=== PATIENT | male | born 1940 | race Caucasian/White ===

== ENCOUNTER → 2017-05-18 10:00 | Outpatient (REF) | payer MEDICARE, SELFPAY | LOC: LAB 10:00 | PROVIDERS: Visit Provider Emergency Medicine | DX: Z79.899 Other long term (current) drug therapy (principal) ==

== ENCOUNTER → 2017-06-22 11:21 | Outpatient (CLI) | payer MEDICARE, SELFPAY ==
--- NOTE | 2017-06-22 12:34 | XR_ITS ---
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 Normal heart size.. The lungs are clear without infiltrates, suspicious nodules, or pleural effusions. There are chronic changes in the lung bases. No acute bony abnormalities. IMPRESSION: Prior CABG. No acute finding
[2017-06-22 14:05] LABS: Amphetamine/Metha Screen,Urine Negative ng/mL (<1000); Barbiturates Screen,Urine Negative ng/mL (<200); Benzodiazepines Screen,Urine Negative ng/mL (200); Cannabinoid Screen,Urine Negative ng/mL (<50); Cocaine Screen,Urine Negative ng/g (<300); Methadone Screen,Urine Negative ng/mL (<300); Opiate Screen,Urine Negative ng/mL (<300); Phencyclidine Screen,Urine Negative ng/mL (<25)
== END ==
PROVIDERS: PCP Emergency Medicine; Visit Provider Emergency Medicine
DX: Z79.899 Other long term (current) drug therapy (principal); R05 Cough; Z95.5 Presence of coronary angioplasty implant and graft
CPT/HCPCS: 71046; 80305

== ENCOUNTER → 2017-08-31 11:10 | Outpatient (REF) | payer MEDICARE, SELFPAY ==
[2017-08-31 14:53] LABS: Basophils # 0.1 K/mm3 (0-0.2); Basophils % 0.9 % (0.1-2.0); Eosinophils # 0.4 K/mm3 (0.0-0.4); Eosinophils % 5.1 % (0.1-12.0); Hematocrit 50.5 % (42.0-52.0); Hemoglobin 15.7 g/dL (14.1-18.0); Lymphocytes # 1.8 K/mm3 (0.7-4.5); Mean Corpuscular Hemoglobin 30.3 pg (27.0-31.2); Mean Corpuscular Volume 97.7 fl (80-94); Mean Platelet Volume 8.1 fl (7.4-10.4); Monocytes # 0.4 K/mm3 (0.1-1.0); Monocytes % 5.2 % (1.7-9.3); Neutrophils # 4.7 K/mm3 (1.8-7.8); Neutrophils % 63.9 % (37.0-80.0); Platelet Count 213 K/mm3 (142-424); Red Blood Count 5.17 M/mm3 (4.60-6.20); Red Cell Distribution Width 13.8 % (11.5-17.5); White Blood Count 7.3 K/mm3 (4.8-10.8)
[2017-08-31 15:11] LABS: Alanine Aminotransferase 19 U/L (12-78); Albumin Level 3.9 gm/dL (3.4-5.0); Albumin/Globulin Ratio 1.1 (1.1-1.8); Alkaline Phosphatase 100 U/L (46-116); Anion Gap 14.5 mEq/L (5-15); Aspartate Amino Transferase 19 U/L (15-37); Bilirubin,Total 0.4 mg/dL (0.2-1.0); Blood Urea Nitrogen 20 mg/dL (7-18); Calcium 8.8 mg/dL (8.5-10.1); Carbon Dioxide 31 mmol/L (21.0-32.0); Chloride 97 mmol/L (98-107); Chol/HDL Ratio 2.9 (1-3.5); Cholesterol 243 mg/dL (140-200); Creatinine,Serum 1.73 mg/dL (0.70-1.30); Estimated Glomerular Filt Rate 39 ml/min (>60); GFR (African American) 47 ML/MIN (>60); Globulin 3.7 gm/dl (1.3-3.2); Glucose 280 mg/dL (74-106); HDL Cholesterol 84 mg/dL (27-67); LDL Cholesterol 140 mg/dL (0-130); Potassium 5.5 mmoL/L (3.5-5.1); Sodium 137 mmol/L (136-145); Thyroid Stimulating Hormone 0.84 uIU/ml (0.358-3.740); Total Protein,Serum 7.6 gm/dL (6.4-8.2); Triglycerides 96 mg/dL (30-200); VLDL Cholesterol 19 mg/dL (0-40)
[2017-08-31 19:21] LABS: Amphetamine/Metha Screen,Urine Negative ng/mL (<1000); Barbiturates Screen,Urine Negative ng/mL (<200); Benzodiazepines Screen,Urine Negative ng/mL (200); Cannabinoid Screen,Urine Negative ng/mL (<50); Cocaine Screen,Urine Negative ng/g (<300); Methadone Screen,Urine Negative ng/mL (<300); Opiate Screen,Urine Negative ng/mL (<300); Phencyclidine Screen,Urine Negative ng/mL (<25)
[2017-09-02 11:19] LABS: Creatinine, Urine 22.2 mg/dL (Not Estab.); Microalbumin, Urine 113.1 ug/mL (Not Estab.)
[2017-09-03 12:43] LABS: PSA, Free 2.33 ng/mL; Prostate Specific Ag 9.3 ng/mL (0.0-4.0); Vitamin D 25 Hydroxy 14.1 ng/mL (30.0-100.0)
== END ==
LOC: LAB 11:10
PROVIDERS: Visit Provider Emergency Medicine
DX: Z79.899 Other long term (current) drug therapy (principal); M54.9 Dorsalgia, unspecified
CPT/HCPCS: 80053; 80061; 80305; 82043; 82570; 82652; 83036; 84153; 84154; 84439; 84443; 85025

== ENCOUNTER → 2017-10-11 08:44 | Outpatient (REF) | payer MEDICARE, SELFPAY ==
[2017-10-11 16:58] LABS: Amphetamine/Metha Screen,Urine Negative ng/mL (<1000); Barbiturates Screen,Urine Negative ng/mL (<200); Benzodiazepines Screen,Urine Negative ng/mL (200); Cannabinoid Screen,Urine Negative ng/mL (<50); Cocaine Screen,Urine Negative ng/g (<300); Methadone Screen,Urine Negative ng/mL (<300); Opiate Screen,Urine Negative ng/mL (<300); Phencyclidine Screen,Urine Negative ng/mL (<25)
== END ==
LOC: LAB 08:44
PROVIDERS: Visit Provider Emergency Medicine
DX: Z79.899 Other long term (current) drug therapy (principal)
CPT/HCPCS: 80305

== ENCOUNTER → 2017-11-06 10:16 | Outpatient (CLI) | payer MEDICARE, SELFPAY ==
[2017-11-06 10:20] LABS: Microscopic, Urine URINE MICROSCOPIC (MICROSCOPIC)
[2017-11-06 10:37] LABS: Basophils # 0.1 K/mm3 (0-0.2); Basophils % 0.9 % (0.1-2.0); Eosinophils # 0.4 K/mm3 (0.0-0.4); Eosinophils % 5.1 % (0.1-12.0); Hematocrit 47.3 % (42.0-52.0); Hemoglobin 14.5 g/dL (14.1-18.0); Lymphocytes # 1.8 K/mm3 (0.7-4.5); Lymphocytes % 24.6 K/mm3 (10-50); Mean Corpuscular HGB Conc 30.5 g/dL (31.8-35.4); Mean Corpuscular Hemoglobin 28.5 pg (27.0-31.2); Mean Corpuscular Volume 93.5 fl (80-94); Mean Platelet Volume 7.6 fl (7.4-10.4); Monocytes # 0.5 K/mm3 (0.1-1.0); Monocytes % 6.1 % (1.7-9.3); Neutrophils # 4.8 K/mm3 (1.8-7.8); Neutrophils % 63.4 % (37.0-80.0); Platelet Count 204 K/mm3 (142-424); Red Blood Count 5.07 M/mm3 (4.60-6.20); Red Cell Distribution Width 13.5 % (11.5-17.5); White Blood Count 7.5 K/mm3 (4.8-10.8)
[2017-11-06 10:45] LABS: Appearance,Urine CLEAR (Clear); Bilirubin,Urine Negative (Negative); Blood, Urine Negative (Negative); Color,Urine YELLOW (Yellow); Glucose,Urine (UA) TRACE (Negative); Ketones,Urine Negative (Negative); Leukocyte Esterase,Urine Negative (Negative); Nitrate,Urine Negative (Negative); Protein,Urine 1+ (Negative); Specific Gravity, Urine 1.025 (1.005-1.030)
[2017-11-06 10:48] LABS: Creatinine,Urine Random 132 mg/dL (20-320); Total Protein,Urine Random 80.5 mg/dL (0.0-11.9)
[2017-11-06 10:57] LABS: Bacteria,Urine 1+ /lpf; WBC,Urine Occasional #/hpf (0-3)
[2017-11-06 12:50] LABS: Albumin Level 3.3 gm/dL (3.4-5.0); Anion Gap 11.3 mEq/L (5-15); Blood Urea Nitrogen 19 mg/dL (7-18); Calcium 8.4 mg/dL (8.5-10.1); Carbon Dioxide 29 mmol/L (21.0-32.0); Chloride 102 mmol/L (98-107); Creatinine,Serum 1.73 mg/dL (0.70-1.30); Estimated Glomerular Filt Rate 39 ml/min (>60); GFR (African American) 47 ML/MIN (>60); Glucose 215 mg/dL (74-106); Phosphorous 3.9 mg/dL (2.4-4.9); Potassium 5.3 mmoL/L (3.5-5.1); Sodium 137 mmol/L (136-145)
== END ==
PROVIDERS: Visit Provider Internal Medicine Nephrology
DX: N18.3 Chronic kidney disease, stage 3 (moderate) (principal)
CPT/HCPCS: 36415; 80069; 81001; 82570; 84155; 85025

== ENCOUNTER → 2017-11-08 12:23 | Outpatient (POV) | payer MEDICARE, SELFPAY | PROVIDERS: Family Provider Emergency Medicine; PCP Emergency Medicine; Visit Provider Internal Medicine Nephrology | DX: Z00.00 Encounter for general adult medical examination without abnormal findings (principal) ==

== ENCOUNTER → 2017-11-09 11:03 | Outpatient (REF) | payer MEDICARE, SELFPAY ==
[2017-11-09 14:25] LABS: Amphetamine/Metha Screen,Urine Negative ng/mL (<1000); Barbiturates Screen,Urine Negative ng/mL (<200); Benzodiazepines Screen,Urine Negative ng/mL (<200); Cannabinoid Screen,Urine Negative ng/mL (<50); Cocaine Screen,Urine Negative ng/mL (<300); Methadone Screen,Urine Negative ng/mL (<300); Opiate Screen,Urine Negative ng/mL (<300); Phencyclidine Screen,Urine Negative ng/mL (<25)
== END ==
LOC: LAB 11:03
PROVIDERS: Visit Provider Emergency Medicine
DX: M54.5 Low back pain (principal); Z79.899 Other long term (current) drug therapy
CPT/HCPCS: 80305

== ENCOUNTER → 2017-12-27 15:51 | Outpatient (CLI) | payer MEDICARE, SELFPAY ==
[2017-12-27 18:21] LABS: Amphetamine/Metha Screen,Urine Negative ng/mL (<1000); Barbiturates Screen,Urine Negative ng/mL (<200); Benzodiazepines Screen,Urine Negative ng/mL (<200); Cannabinoid Screen,Urine Negative ng/mL (<50); Cocaine Screen,Urine Negative ng/mL (<300); Methadone Screen,Urine Negative ng/mL (<300); Opiate Screen,Urine Negative ng/mL (<300); Phencyclidine Screen,Urine Negative ng/mL (<25)
== END ==
PROVIDERS: Visit Provider Nurse Practitioner Family
DX: Z79.899 Other long term (current) drug therapy (principal)
CPT/HCPCS: 80305

== ENCOUNTER → 2018-01-26 10:57 | Outpatient (REF) | payer MEDICARE, SELFPAY ==
[2018-01-26 14:26] LABS: Amphetamine/Metha Screen,Urine Negative ng/mL (<1000); Barbiturates Screen,Urine Negative ng/mL (<200); Benzodiazepines Screen,Urine Negative ng/mL (<200); Cannabinoid Screen,Urine Negative ng/mL (<50); Cocaine Screen,Urine Negative ng/mL (<300); Methadone Screen,Urine Negative ng/mL (<300); Opiate Screen,Urine Negative ng/mL (<300); Phencyclidine Screen,Urine Negative ng/mL (<25)
== END ==
LOC: LAB 10:57
PROVIDERS: Visit Provider Emergency Medicine
DX: Z79.899 Other long term (current) drug therapy (principal)
CPT/HCPCS: 80305

== ENCOUNTER → 2018-02-04 07:42 | Outpatient (CLI) | payer MEDICARE, SELFPAY ==
--- NOTE | 2018-02-04 07:44 | CI_ITS ---
Cerebrovascular Exam Indications: 433.10 Occlusion/stenosis of carotid artery without cerebral infarction. IMPRESSIONS 1. The bilateral vertebral arteries are patent with normal antegrade flow. 2. Study suggests 50-69% stenosis involving the right internal carotid artery and the left internal carotid artery. The left ICA was difficult to image velocities support 50-69% but upper end of scale.No change from the study of 24-Jun-2016. Carotid duplex study. Complete study and Doppler flow study including spectral analysis, color and whitten scale imaging. Location: Vascular laboratory. Patient status: Outpatient. Tables: Arterial flow: + +--------+--------+ Location V sys V ed + +--------+--------+ Right CCA - proximal 45.6cm/s 12.6cm/s + +--------+--------+ Right CCA - distal 49.5cm/s 11cm/s + +--------+--------+ Right ECA 112cm/s -------- + +--------+--------+ Right ICA - proximal 117cm/s 43.2cm/s + +--------+--------+ Right ICA - mid 141cm/s 43.2cm/s + +--------+--------+ Right ICA - distal 65.2cm/s 21.2cm/s + +--------+--------+ Right vertebral 75.4cm/s -------- + +--------+--------+ Left CCA - proximal 107cm/s 23.6cm/s + +--------+--------+ Left CCA - distal 135cm/s 28.3cm/s + +--------+--------+ Left ECA 188cm/s -------- + +--------+--------+ Left ICA - proximal 141cm/s 44cm/s + +--------+--------+ Left ICA - mid 120cm/s 33cm/s + +--------+--------+ Left ICA - distal 108cm/s 25.1cm/s + +--------+--------+ Left vertebral 72.3cm/s -------- + +--------+--------+ Velocity ratios: + + + + + + Right, V sys Right, V ed Left, V sys Left, V ed + + + + + + Max ICA/dist CCA 2.85 3.93 1.04 1.55 + + + + + + (Report amended ) Electronically signed by: Juan Broderick [id number]
== END ==
PROVIDERS: Family Provider Emergency Medicine; PCP Emergency Medicine; Visit Provider Internal Medicine
DX: I65.23 Occlusion and stenosis of bilateral carotid arteries (principal)
CPT/HCPCS: 93880

== ENCOUNTER → 2018-02-23 10:11 | Outpatient (REF) | payer MEDICARE, SELFPAY ==
[2018-02-23 15:21] LABS: Amphetamine/Metha Screen,Urine Negative ng/mL (<1000); Barbiturates Screen,Urine Negative ng/mL (<200); Benzodiazepines Screen,Urine Negative ng/mL (<200); Cannabinoid Screen,Urine Negative ng/mL (<50); Cocaine Screen,Urine Negative ng/mL (<300); Methadone Screen,Urine Negative ng/mL (<300); Opiate Screen,Urine Negative ng/mL (<300); Phencyclidine Screen,Urine Negative ng/mL (<25)
== END ==
LOC: LAB 10:11
PROVIDERS: PCP Emergency Medicine; Visit Provider Emergency Medicine
DX: Z79.899 Other long term (current) drug therapy (principal)
CPT/HCPCS: 80305; 93005